=== PATIENT | female | born 1990 | race Caucasian/White ===

== ENCOUNTER 2017-03-06 13:18 | Outpatient (CLI) | payer BC, OTHER ==
[~2017-03-06] VITALS: Ht 167.6 cm; Wt 81.3 kg
[~2017-03-06 13:18] MED LIST: HYDR-3498 PO
[2017-03-06 13:21] VITALS: BP 137/73; PULSE 111; RESP 18; Ht 167.6 cm; Wt 81.3 kg
[2017-03-06] MEDS ORDERED: PREN-93 PO (13:52)
--- NOTE | 2017-03-06 14:25 | RADRPT ---
PROCEDURE: OB ultrasound for biophysical profile CLINICAL INDICATION: Decreased movement TECHNIQUE: Multiple sonographic images of the pelvis were obtained. Transabdominal view of the gr avid uterus are available for review. The images were reviewed on a PACS workstation. COMPARISON: None FINDINGS: breathing movement = 2/2 tone = 2/2 motion = 2/2 Quantitative amniotic fluid volume = 2/2 MYESHA = 16.5 cm Single live intrauterine with cardiac activity at 139 beats per minute. There is a anterior placenta without previa. There is an anterior abdominal wall defect with numerous small bowel loops outside the abdomin al cavity. IMPRESSION: 1. Single living intrauterine gestation in breech position probable gastroschisis. A full anatomic OB ultrasound is suggested in further evaluation. 2. Biophysical profile = 05/23. 3. MYESHA = cm. Note: A call report was made to Toy Lind on 03/06/2017 2:18:43 PM. RPTAT: [facility] Physician Bethel Date Time Electronically viewed and signed by Physician Bethel on 03/06/2017 14:24 /
--- NOTE | 2017-03-06 15:02 | PN ---
Date/Time of Note Date/Time of Note DATE: 03/06/17 TIME: 14:57 OB Subjective Subjective Subjective Patient is a 26-year-old 1 para 0 at 28+ weeks of gestation She presents with decreased movement Patient's been receiving care with Dr. Gates/Dr. Blandon Patient has been diagnosed with Gastroschisis OB Objective Objective Objective PROCEDURE: OB ultrasound for biophysical profile CLINICAL INDICATION: Decreased movement TECHNIQUE: Multiple sonographic images of the pelvis were obtained. Transabdominal view of the gravid uterus are available for review. The images were reviewed on a PACS workstation. COMPARISON: None FINDINGS: breathing movement = 2/2 tone = 2/2 motion = 2/2 Quantitative amniotic fluid volume = 2/2 MYESHA = 16.5 cm Single live intrauterine with cardiac activity at 139 beats per minute. There is a anterior placenta without previa. There is an anterior abdominal wall defect with numerous small bowel loops outside the abdominal cavity. IMPRESSION: 1. Single living intrauterine gestation in breech position probable gastroschisis. A full anatomic OB ultrasound is suggested in further evaluation. 2. Biophysical profile = 8/8. 3. MYESHA = cm. Note: A call report was made to Kali Lind on 03/06/2017 2:18:43 PM. RPTAT: [facility] Physician Bethel Date Time Electronically viewed and signed by Physician Bethel on 03/06/2017 14: 24 JH/ CC: KALI BLANDON MD HEENT: WNL Heart: Rhythm Normal Lungs: Clear, Equal Abdomen: WNL Extremities: Normal Reflexes: Normal Cervical Dilatation: None Membranes: Intact Heart Rate: 140's Accelerations: Accelerations Present Decelerations: No Decelerations OB Assessment/Plan Other Assessment: 28+ weeks of gestation with gastroschisis Biophysical profile 8 out of 8 MYESHA 16.5 Other plan: Patient was counseled regarding the delivery management which is planned to be at [facility] Patient will be discharged home She was counseled to follow-up with in 2-3 days SUSHANT PITTS MD March 06, 2017 15:02
--- NOTE | 2017-03-06 15:43 | TRIAGE ---
OB Triage Datetime Report Generated by CPN: 03/06/2017 15:43 Datetime: 03/06/2017 15:39 Labor Evaluation Frequency: 0 Monitor Mode: External Pattern: Normal: <= 5 Contractions in 10 Minutes Resting Tone [place]: Relaxed Heart Rate FHR Baseline Rate: 140 Monitor Mode: External US Variability: Moderate 6-25 bpm Accelerations: 15X15 Decelerations: None Category: Category I Pain Assessment Pain Presence: None/Denies Datetime: 03/06/2017 14:29 Labor Evaluation Frequency: 0 Monitor Mode: External Pattern: Normal: <= 5 Contractions in 10 Minutes Resting Tone [place]: Relaxed Heart Rate FHR Baseline Rate: 150 Monitor Mode: External US Variability: Moderate 6-25 bpm Accelerations: 10X10 Category: Category II Comments: MILD VARIABLE DECELS NOTED Datetime: 03/06/2017 13:45 Arrived By: Ambulatory Arrived From: Home Movement: Present Contractions: Denies/Absent Rupture of Membranes: Unsure Vaginal Discharge: Denies Abdominal Trauma: Not Applicable Datetime: 03/06/2017 13:25 Assessment Type: Admission Assessment EGA: 28.2 Maternal Assessment Level of Consciousness: Fully Conscious DTR's/Clonus: DTRs 2+; No Clonus Headache: Denies Blurred Vision: No Respiratory Effort: Unlabored; Regular Rhythm; Equal Expansion Breath Sounds, Left: Clear and Equal Breath Sounds, Right: Clear and Equal Nausea/Vomiting: Denies RUQ Epigastric Pain: Denies Lower Extremities Edema: None Degree: None Upper Extremities Edema: None Degree: None Facial Edema: None Fall Risk Assessment History of Falling: (0) No Secondary Diagnosis: (0) No Ambulatory Aid: (0) Bedrest/Nurse Assist IV Therapy: (0) No Gait: (0) Normal/Bedrest/Immobile Mental Status: (0) Oriented to Own Ability Fall Score: 0 Fall Risk Score Definition: No Risk: No action required Datetime: 03/06/2017 13:19 Stage of : OB Triage Pain Assessment Pain Presence: None/Denies Datetime: 03/06/2017 13:11 Time of Arrival: 03/06/2017 13:11 Arrived By: Ambulatory Arrived From: Home Chief Complaint: DECREASED MOVEMENT SINCE 03/05 AT 0800 Movement: Decreased Contractions: Denies/Absent Rupture of Membranes: Denies Vaginal Bleeding: None Vaginal Discharge: Denies Recent Sexual Intercouse: Denies Abdominal Trauma: Not Applicable Patient Complaints: None Time Provider Notified: 03/06/2017 13:50 Provider Notified: DR. MINAYA Initial Plan: TOCO/ US, BPP-05/23,
== END 2017-03-06 15:50 | disposition home or self-care (01) ==
LOC: OBT 13:18 → L-D 13:19 → OBT 15:50
PROVIDERS: ATTEND Obstetrics & Gynecology
DX: O36.8120 Decreased fetal movements, second trimester, not applicable or unspecified (principal); Z3A.28 28 weeks gestation of pregnancy
CPT/HCPCS: 76818; G0463